=== PATIENT | female | born 1995 | race Caucasian/White ===

== ENCOUNTER 2018-06-27 18:24 | Inpatient (IN) | payer MEDICAID ==
[2018-06-27] MEDS ORDERED: AMPICILLIN 2 GM/NS (PMX) 100 ML IV (21:00)
[2018-06-27] MEDS ORDERED: OXYTOCIN 30 UNITS/LR 500 ML IV ×2 (21:00)
[2018-06-27] MEDS ORDERED: METHYLERGONOVINE 0.2 MG INJ IM (21:00)
[2018-06-27] MEDS ORDERED: MISOPROSTOL 200 MCG TAB PR (21:00)
[2018-06-27] MEDS ORDERED: LIDOCAINE 1% (MPF) 30 ML INJ INJ (21:00)
[2018-06-27] MEDS ORDERED: CARBOPROST 250 MCG INJ IM (21:00)
[2018-06-27] MEDS ORDERED: IBUPROFEN 600 MG TAB PO (21:00)
[2018-06-27] MEDS ORDERED: ACETAMINOPHEN/CODEINE #3 TAB PO (21:00)
[2018-06-27] MEDS ORDERED: BUTORPHANOL 1 MG INJ IV (21:00)
[2018-06-27 21:20] LABS: ADD MAN DIFF? NO
[2018-06-27 21:26] LABS: BASOPHILS % 0.3 % (0.0-2.0); EOSINOPHILS % 0.3 % (0.0-7.0); HEMOGLOBIN 11.1 g/dl (12.0-16.0); LYMPHOCYTES # 2.3 10^3/ul (0.8-2.9); LYMPHOCYTES % 32.9 % (15.0-51.0); MEAN CORPUSCULAR HEMOGLOBIN 32.6 pg (29.0-33.0); MEAN CORPUSCULAR HGB CONC 34.7 g/dl (32.0-37.0); MEAN CORPUSCULAR VOLUME 94.1 fl (82.0-101.0); MONOCYTE # 0.5 10^3/ul (0.3-0.9); MONOCYTES % 7.6 % (0.0-11.0); NEUTROPHIL # 4.1 10^3/ul (1.6-7.5); NEUTROPHILS % 58.5 % (39.0-77.0); PLATELET COUNT 141 10^3/UL (140-415); RED CELL DISTRIBUTION WIDTH 12.1 % (11.5-14.5)
[2018-06-27 21:26] LABS: WHITE BLOOD COUNT 6.9 10^3/ul (4.8-10.8)
[2018-06-27 21:35] LABS: ADD UMIC YES; UR ASCORBIC ACID NEGATIVE (NEGATIVE); UR BACTERIA FEW /HPF (NONE SEEN); UR BILIRUBIN (Dip) NEGATIVE (NEGATIVE); UR BLOOD (Dip) NEGATIVE (NEGATIVE); UR CLARITY CLEAR (CLEAR); UR COLOR STRAW (YELLOW); UR GLUCOSE (Dip) NEGATIVE (NEGATIVE); UR KETONES (Dip) NEGATIVE (NEGATIVE); UR LEUKOCYTE ESTERASE (Dip) NEGATIVE Leu/ul (NEGATIVE); UR NITRITE (Dip) NEGATIVE (NEGATIVE); UR RBC 0 /HPF (0-5); UR SPECIFIC GRAVITY (Dip) 1.008 (1.003-1.030); UR TOTAL PROTEIN (Dip) 1+ mg/dl (NEGATIVE); UR UROBILINOGEN (Dip) NEGATIVE (NEGATIVE); UR WBC 1 /HPF (0-5)
[2018-06-27 21:46] LABS: INR 0.85; PARTIAL THROMBOPLASTIN TIME 27.5 Sec (25.0-35.0); PROTIME 11.7 Sec (11.9-14.9); PT RATIO 0.9
[2018-06-27 22:10] LABS: ALANINE AMINOTRANSFERASE 29 IU/L (13-69); ALBUMIN 3.3 g/dl (3.3-4.9); ALBUMIN/GLOBULIN RATIO 1.13; ALKALINE PHOSPHATASE 324 IU/L (42-121); ANION GAP 10 (8-16); ASPARTATE AMINO TRANSFERASE 29 IU/L (15-46); BILIRUBIN,INDIRECT 0.6 mg/dl (0-1.1); BILIRUBIN,TOTAL 0.6 mg/dl (0.2-1.3); BLOOD UREA NITROGEN 13 mg/dl (7-20); CALCIUM 9.5 mg/dl (8.4-10.2); CARBON DIOXIDE 21 mmol/L (21-31); CHLORIDE 110 mmol/L (97-110); CREATININE 0.69 mg/dl (0.44-1.00); GLUCOSE 75 mg/dl (70-220); POTASSIUM 4.2 mmol/L (3.5-5.1); SODIUM 137 mmol/L (135-144); TOTAL PROTEIN 6.2 g/dl (6.1-8.1)
[2018-06-27] MEDS: LACTATED RINGER'S 1,000 ML IV* (22:58)
[2018-06-27] MEDS: MISOPROSTOL 25 MCG CAPSULE PO (22:59)
[2018-06-27 23:16] LABS: HEPATITIS B SURFACE ANTIGEN NEGATIVE (NEGATIVE)
[2018-06-28] MEDS ORDERED: AMPICILLIN 1 GM/NS (PMX) 50 ML IV (01:00)
[2018-06-28] MEDS: MISOPROSTOL 25 MCG CAPSULE PO ×6 (04:00→21:00)
[2018-06-28] MEDS: ACETAMINOPHEN 325 MG TAB PO (04:05)
[2018-06-28] MEDS: BUTORPHANOL 2 MG INJ IV (05:28)
[2018-06-28] MEDS: LACTATED RINGER'S 1,000 ML IV* ×3 (05:28→21:00)
[2018-06-28] MEDS ORDERED: FENTAnyl 2MCG/ML-ROPIV 0.2% 100 ML (08:41)
[2018-06-28] MEDS ORDERED: MISOPROSTOL 25 MCG CAPSULE PO (09:00)
[2018-06-28] MEDS ORDERED: NALOXONE (0.4 MG/ML) INJ IV (09:00)
[2018-06-28 15:28] LABS: RAPID PLASMA REAGIN NONREACTIVE (NR)
[2018-06-28] MEDS: FENTAnyl 2MCG/ML-ROPIV 0.2% 100 ML BAG EPI ×2 (16:53→22:49)
[2018-06-28 21:00] LABS: AMPHETAMINE/METHAMPHETAMINE NEGATIVE (NEGATIVE); BARBITURATES NEGATIVE (NEGATIVE); BENZODIAZEPINES NEGATIVE (NEGATIVE); CANNABINOIDS NEGATIVE (NEGATIVE); COCAINE NEGATIVE (NEGATIVE); OPIATES NEGATIVE (NEGATIVE)
[2018-06-28] MEDS: OXYTOCIN 30 UNITS/LR 500 ML IV (22:22)
[2018-06-29] MEDS: MINERAL OIL LIGHT 10 ML VIAL TOP (03:14)
[2018-06-29] MEDS: OXYTOCIN 30 UNITS/LR 500 ML IV (03:18)
[2018-06-29] MEDS ORDERED: DEXTROSE 5%-LR 1,000 ML IV (04:47)
[2018-06-29] MEDS: OXYCODONE/ASPIRIN (4.88/325) TAB PO (04:48)
[2018-06-29] MEDS ORDERED: CARBOPROST 250 MCG INJ IM (05:00)
[2018-06-29] MEDS ORDERED: OXYTOCIN 30 UNITS/LR 500 ML IV (05:00)
[2018-06-29] MEDS ORDERED: ONDANSETRON 4 MG INJ IV (05:00)
[2018-06-29] MEDS ORDERED: DIBUCAINE 1% 30 GM OINT PR (05:00)
[2018-06-29] MEDS ORDERED: ZOLPIDEM 5 MG TAB PO (05:00)
[2018-06-29] MEDS ORDERED: ACETAMINOPHEN 325 MG TAB PO (05:00)
[2018-06-29] MEDS ORDERED: SENNA/DOCUSATE NA (8.6MG/50MG) TAB PO (05:00)
[2018-06-29] MEDS ORDERED: DIPHENHYDRAMINE 50 MG INJ IV (05:00)
[2018-06-29] MEDS ORDERED: MISOPROSTOL 200 MCG TAB PR (05:00)
[2018-06-29] MEDS ORDERED: METHYLERGONOVINE 0.2 MG INJ IM (05:00)
[2018-06-29] MEDS: LACTATED RINGER'S 1,000 ML IV* (06:44)
[2018-06-29] MEDS: IBUPROFEN 600 MG TAB PO ×4 (06:49→23:52)
[2018-06-29] MEDS: LANOLIN 7 GM TUBE TOP (06:49)
[2018-06-29] MEDS: WITCH HAZEL/GLYCERIN PAD PR (06:49)
[2018-06-29] MEDS: BENZOCAINE 20% 56 ML SPRAY TOP (06:50)
[2018-06-29 13:01] LABS: RUBELLA ANTIBODY - IGG 3.22 index
[2018-06-30] MEDS: IBUPROFEN 600 MG TAB PO ×4 (05:47→23:31)
[2018-06-30 10:06] LABS: ADD MAN DIFF? NO
[2018-06-30 10:11] LABS: BASOPHILS % 0.2 % (0.0-2.0); EOSINOPHILS # 0.1 10^3/ul (0.0-0.5); EOSINOPHILS % 0.4 % (0.0-7.0); HEMATOCRIT 25.7 % (37.0-47.0); HEMOGLOBIN 8.7 g/dl (12.0-16.0); LYMPHOCYTES # 2.4 10^3/ul (0.8-2.9); LYMPHOCYTES % 14.7 % (15.0-51.0); MEAN CORPUSCULAR HEMOGLOBIN 32.5 pg (29.0-33.0); MEAN CORPUSCULAR HGB CONC 33.9 g/dl (32.0-37.0); MEAN CORPUSCULAR VOLUME 95.9 fl (82.0-101.0); MEAN PLATELET VOLUME 9.8 fl (7.4-10.4); MONOCYTE # 0.8 10^3/ul (0.3-0.9); MONOCYTES % 4.8 % (0.0-11.0); NEUTROPHIL # 12.8 10^3/ul (1.6-7.5); NEUTROPHILS % 78.7 % (39.0-77.0); PLATELET COUNT 117 10^3/UL (140-415); RED BLOOD COUNT 2.68 10^6/ul (4.20-5.40); RED CELL DISTRIBUTION WIDTH 12.6 % (11.5-14.5)
[2018-06-30 10:11] LABS: WHITE BLOOD COUNT 16.2 10^3/ul (4.8-10.8)
[2018-06-30] MEDS: OXYCODONE/ASPIRIN (4.88/325) TAB PO (21:31)
[2018-07-01] MEDS: IBUPROFEN 600 MG TAB PO ×2 (05:43→11:38)
[2018-07-01] MEDS: MEASLES,MUMPS,RUBELLA VACCINE INJ SC* (09:00)
[2018-07-01] MEDS: DIPHTH/TET/ACEL PERTUSS (ADULT) 0.5 ML VIAL IM* (11:39)
[2018-07-01 11:52] LABS: RUBELLA ANTIBODY - IGM <20.00 AU/mL
== END 2018-07-01 16:15 | disposition home or self-care (01) | DRG 775 ==
LOC: OBT 18:24 → L-D 06-28 02:25 → PP1 06-29 05:49 → OBT 20:35 → L-D 20:35
PROC: 10E0XZZ Delivery of Products of Conception, External Approach (ICD-10-PCS; principal; 2018-06-29)
PROC: 0W8NXZZ Division of Female Perineum, External Approach (ICD-10-PCS; 2018-06-29)
DX: O13.4 Gestational [pregnancy-induced] hypertension without significant proteinuria, complicating childbirth (principal); Z3A.40 40 weeks gestation of pregnancy; Z37.0 Single live birth; Z23 Encounter for immunization
CPT/HCPCS: 62319; 76815; 80053; 80307; 81001; 84560; 85025; 85384; 85610; 85730; 86592; 86762; 86850; 86900; 86901; 87340; 90715; 99464